=== PATIENT | female | born 1960 | race African-American/Black ===

== ENCOUNTER 2023-06-12 16:10 | Emergency (ER) | payer MEDICAID, OTHER ==
[~2023-06-12] VITALS: Ht 170.2 cm; Wt 74.0 kg
[2023-06-12 16:48] VITALS: O2SAT 0
[2023-06-12 17:31] VITALS: BP 77/35; PULSE 60; RESP 17; TEMP 97.3
[2023-06-12] MEDS ORDERED: SODIUM CHLORIDE 0.9% 1,000 ML IV ONE (17:45)
== END 2023-06-12 20:25 | disposition left against medical advice (07) ==
LOC: ER 16:10 → EDBD 16:10 → ER 20:25
DX: F10.129 Alcohol abuse with intoxication, unspecified (principal); I49.9 Cardiac arrhythmia, unspecified; Z98.890 Other specified postprocedural states; Y90.9 Presence of alcohol in blood, level not specified
CPT/HCPCS: 99283; 71045; 93005; J7030